=== PATIENT | female | born 1985 | race Caucasian/White ===

== ENCOUNTER 2021-05-16 11:01 | Day surgery (SDC) | payer MEDICAID ==
[2021-05-15 12:16] LABS: COVID AG,FIA SOURCE NASOPHARYNGEAL
[~2021-05-16] VITALS: Ht 170.2 cm; Wt 61.4 kg
[~2021-05-16 11:01] MED LIST: FERR325T23 PO; OMEP20CA12 PO; ONDA4TAB96 PO; OXYC1TAB6 PO; SODIUM CHLORIDE 0.9% 1,000 ML ONE
[2021-05-16] MEDS ORDERED: PROPOFOL 1% 20 ML VIAL IVP ONE (11:02)
[2021-05-16] MEDS ORDERED: LIDOCAINE/PF 2% 5 ML SYRINGE IVP ONE (11:02)
[2021-05-16] MEDS ORDERED: SODIUM CHLORIDE 0.9% 1,000 ML IV ONE (12:30)
== END 2021-05-16 14:40 | disposition home or self-care (01) ==
LOC: SURGERY 11:01
PROVIDERS: ATTEND Internal Medicine Gastroenterology
DX: K29.70 Gastritis, unspecified, without bleeding (principal); Z90.49 Acquired absence of other specified parts of digestive tract; K31.84 Gastroparesis; Z79.899 Other long term (current) drug therapy; Z98.890 Other specified postprocedural states
CPT/HCPCS: 43239; 87426; C1769; C9803; J2704; J3490; J7030; 88305; 88312; 88313